=== PATIENT | male | born 2005 | race Two or more races ===

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

== ENCOUNTER 2023-03-15 17:25 | Emergency (ER) | payer MEDICAID ==
[~2023-03-15] VITALS: Ht 172.7 cm; Wt 78.9 kg
[~2023-03-15 17:25] MED LIST changes: +BUPRENORPHIN-N1 EAC1 SL
[2023-03-15 17:39] VITALS: BP 139/82
[2023-03-15] MEDS ORDERED: BUPRENORPHIN-N1 EAC1 SL (17:44)
== END 2023-03-15 17:51 | disposition home or self-care (01) ==
LOC: ER 17:25
DX: F11.20 Opioid dependence, uncomplicated (principal)
CPT/HCPCS: 99283; A9270

== ENCOUNTER 2023-04-08 23:39 | Emergency (ER) | payer OTHER ==
[~2023-04-08] VITALS: Ht 172.7 cm; Wt 80.3 kg
[2023-04-08 23:51] VITALS: BP 125/57
== END 2023-04-09 00:50 | disposition home or self-care (01) ==
LOC: ER 23:39
DX: F11.90 Opioid use, unspecified, uncomplicated (principal)
CPT/HCPCS: 99283; A9270

== ENCOUNTER 2023-09-27 17:29 | Emergency (ER) | payer OTHER ==
[~2023-09-27] VITALS: Ht 175.3 cm; Wt 71.7 kg
[2023-09-27 17:57] VITALS: BP 115/58
[2023-09-27] MEDS ORDERED: Preparation H26 GM TOP (21:01)
== END 2023-09-27 21:22 | disposition home or self-care (01) ==
LOC: ER 17:29
DX: K64.9 Unspecified hemorrhoids (principal); K59.00 Constipation, unspecified; Z79.899 Other long term (current) drug therapy; Z80.0 Family history of malignant neoplasm of digestive organs
CPT/HCPCS: 99283; A9270

== ENCOUNTER 2024-02-28 17:09 | Emergency (ER) | payer OTHER ==
[~2024-02-28] VITALS: Ht 175.3 cm; Wt 64.4 kg
[~2024-02-28 17:09] MED LIST changes: +Preparation H26 GM TOP
[2024-02-28 17:27] VITALS: BP 124/71
== END 2024-02-28 18:44 | disposition home or self-care (01) ==
LOC: ER 17:09
DX: L60.0 Ingrowing nail (principal); Z79.899 Other long term (current) drug therapy
CPT/HCPCS: 11765; 99283-25

== ENCOUNTER 2024-04-29 15:51 | Emergency (ER) | payer OTHER ==
[~2024-04-29] VITALS: Ht 170.2 cm; Wt 62.1 kg
[2024-04-29 16:47] VITALS: BP 114/59
[2024-04-29] MEDS ORDERED: CEPH500 PO (16:57)
== END 2024-04-29 16:58 | disposition home or self-care (01) ==
LOC: ER 15:51
DX: L03.032 Cellulitis of left toe (principal); L02.612 Cutaneous abscess of left foot
CPT/HCPCS: 99283